=== PATIENT | male | born 1940 | race Two or more races ===

== ENCOUNTER → 2017-07-13 | Day surgery (SDC) | payer MEDICARE, MEDICAID ==
[~2017-07-13] MED LIST: AMLO5TAB2 PO; HYDROmorphone 2 MG/ML VIAL IV PRN; IV RINGERS,LACTATED 1000ML 1,000 ML IV SCH; LIDOCAINE 1% PF 2 ML VIAL. ID PRN; LIDOCAINE 2% PF Vial for OR 5 ML VIAL. ONE; LISI10TA2 PO; MONT10TA9 PO; MORPHINE SULFATE 2 MG/ML DISP.SYRIN. IV PRN; ONDANSETRON PF 4 MG/2 ML VIAL. IV PRN; PROCHLORPERAZINE 10 MG/2 ML VIAL. IV PRN; PROPOFOL 60 ML IV ONE; fentaNYL PF VIAL 100 MCG/2 ML VIAL IV PRN
--- NOTE | 2017-07-13 09:09 | PDOC1 ---
HISTORY & PHYSICAL H&P Fozia Bourgeois 1940 06/20/2017 03:40 PM 10/01 [facility] [facility] [facility], [facility] OUR PATIENTS COME FIRST [address] [place] [address]. [phone] Patient: Fozia Bourgeois Date of : 1940 Date: 06/20/2017 3:40 PM Visit Type: Consult This 77 year old male presents for H/o colorectal polyp and GERD. History of Present Illness: 1. H/o colorectal polyp Prior screening: colonoscopy. Risk Factors: h/o colon polyp. Pertinent negatives include abdominal pain, change in bowel habits, change in stool caliber, constipation, decreased appetite, diarrhea, melena, nausea, rectal bleeding, vomiting, weight gain and weight loss. Additional information: No family history of colon cancer, No family history of Crohn's/colitis, No NSAID/ ASA use and Last colonoscopy 2011. 2. GERD The patient reports epigastric pain and heartburn. Context: treatment with PPIs. Denies aggravating factors. Denies relieving factors. Pertinent negatives include aspiration, awakens w/ choking or heartburn, chronic cough, dental erosions, dysphagia, melena, nausea, reflux, sore throat, vomiting, weight gain and weight loss. INTAKE COMMENTS: Intake Comments: Nurse Note: the pt is here today due to a h/o colon polyps in 2011. PROBLEM LIST: Problem Description Onset Date Benign essential hypertension 06/16/2010 Hyperlipidemia 06/16/2010 Hypothyroidism 06/16/2010 Breast mass, left 11/08/2015 Acute pain of right knee 11/08/2015 PAST MEDICAL/SURGICAL HISTORY (Detailed) Disease/disorder Onset Date Management Date Comments Cataract extraction 2010 Prostate biopsy 2009 Colonic polyps colonoscopy with polypectomy 04/25/2012 Hyperlipidemia Hypertension 2000 hypothyroidism DIAGNOSTICS HISTORY: Test Ordered Interpretation Result completed Left shoulder x-ray 06/22/2010 Normal 06/22/2010 EKG 06/16/2010 Normal 06/16/2010 COLONOSCOPY AND BIOPSY 04/29/2012 abnormal Imp: Polyps in the proximal ascending colon(polypectomy), Polyp in the sigmoid colon(polypectomy), Polyp in the proximal rectum(polypectomy), BX: fragments of tubular adenoma, fragments of tubular adenoma, tubular adenoma 04/25/2012 Test Ordered Ordering Comments Modifier Left shoulder x-ray 06/22/2010 Diagnostic Images EKG 06/16/2010 Cardiac Studies COLONOSCOPY AND BIOPSY 04/29/2012 Medications (Active): Started Medication Directions Instruction Stopped 09/14/2016 amlodipine 5 mg tablet TAKE 1 TABLET (5MG) BY ORAL ROUTE EVERY DAY 11/08/2015 cyanocobalamin (vit B-12) 2,500 mcg sublingual lozenge one lozenge sublingually daily. 01/11/2017 Flonase 50 mcg/actuation nasal spray,suspension spray 2 spray by intranasal route every day in each nostril 11/07/2017 09/14/2016 lisinopril 10 mg tablet take 1 tablet by oral route every day 01/11/2017 Singulair 10 mg tablet take 1 tablet by oral route every day in the evening 04/29/2012 Tylenol Extra Strength 500 mg Tab take 2 by Oral route in am and pm 11/08/2015 Vitamin D3 1,000 unit capsule 1 daily Allergies: Ingredient Reaction Medication Name Comment NO KNOWN ALLERGIES REVIEW OF SYSTEMS System Neg/Pos Details Constitutional Negative Chills, fever, malaise, weight gain and weight loss. ENMT Negative Dental erosions and sore throat. Eyes Negative Double vision. Respiratory Negative Aspiration, chronic cough, dyspnea and wheezing. Cardio Negative Chest pain and irregular heartbeat/palpitations. GI Positive See HPI. GI Negative Abdominal pain, awakenings with choking or heartburn, change in bowel habits, change in stool caliber, constipation, decreased appetite, diarrhea, dysphagia, melena, nausea, see HPI, rectal bleeding, reflux and vomiting. Negative Dysuria and hematuria. Endocrine Negative Cold intolerance and heat intolerance. Psych Negative Anxiety. Integumentary Negative Hives and rash. MS Negative Joint pain. Tru/Lymph Negative Easy bleeding and easy bruising. Allergic/Immuno Negative Animals at home and food allergies. VITAL SIGNS Time BP mm/Hg Pulse /min Resp /min Temp F Ht ft Ht in Ht cm Wt lb Wt kg BMI kg/ m2 BSA m2 O2 Sat% 3:55 PM 138/82 80 98.1 0.0 65.60 166.62 168.20 76.294 27.48 96 Time Measured by 3:55 PM Hilda Lopes PHYSICAL EXAM: Exam Findings Details Constitutional Normal Well developed. Eyes Normal Conjunctiva - Right: Normal, Left: Normal. Sclera - Right: Normal, Left: Normal. Nasopharynx Normal Lips/teeth/gums - Normal. Neck Exam Normal Inspection - Normal. Thyroid gland - Normal. Respiratory Normal Inspection - Normal. Auscultation - Normal. Cardiovascular Normal Regular rate and rhythm. No murmurs, gallops, or rubs. Vascular Normal Pulses - Carotids: Normal, Femoral: Normal, Dorsalis pedis: Normal. Abdomen Normal Inspection - Normal. Anterior palpation - No guarding. No abdominal tenderness. No hepatic enlargement. No splenic enlargement. No hernia. No ascites. Skin Normal Inspection - Normal. Extremity Normal No edema. Psychiatric * Oriented to time, place, person and situation. Psychiatric Normal Appropriate mood and effect. Assessment/Plan # Detail Type Description 1. Assessment GERD with esophagitis (K21.0). Patient Plan schedule EGD at Plan Orders Further diagnostic evaluations ordered today include(s) EGD to be performed today. 2. Assessment History of colon polyps (Z86.010). Patient Plan schedule colonoscopy at Plan Orders Further diagnostic evaluations ordered today include(s) Colonoscopy to be performed today. He is to schedule a follow-up visit with Piper Bourgeois MD upon completion of work-up Electronically signed by: Piper Bourgeois MD 06/22/2017 10:16 AM Document generated by: Piper Bourgeois 06/22/2017 10:16 AM Ana María Alfaro MD, Family Practice; Stephan London MD Internal Medicine; Christian Hoffmann MD, Internal Medicine; Wilder Bourgeois MD Internal Medicine; Piper Bourgeois MD, Gastroenterology; Mian Ocampo MD, Rheumatology, S. Fabrizio Temple, Physical Medicine/Rehab Isidro Campa APRN ------ 07/13/17 Patient seen and examined. No change in H&P. PIPER BOURGEOIS MD Jul 13, 2017 09:09
[2017-07-13 10:10] VITALS: BP 137/83
--- NOTE | 2017-07-16 15:06 | PATHOLOGY ---
PATHOLOGY REPORT * * * * * * * * FINAL DIAGNOSIS: Esophageal biopsy, distal esophagus: - Segments of hyperplastic squamous esophageal mucosa and esophagogastric mucosa showing chronic inflammation, consistent with reflux esophagitis. COMMENT: Sections of the distal esophageal biopsy reveal segments of hyperplastic squamous esophageal mucosa and esophagogastric mucosa showing [id number] active chronic inflammation, consistent with reflux esophagitis. There is no evidence of Trejo's change, dysplasia or malignancy. (JPM:mml; 07/16/2017) REPORT ELECTRONICALLY SIGNED BY: Florentino Vieira M.D. DATE/TIME: 07/16/2017 15:04 * * * * * * * * GROSS PATHOLOGY: Received in formalin labeled "Fozia Bourgeois, distal esophageal BX," are 2 segments of valle soft tissue measuring 0.8 x 0.3 x 0.4 cm in aggregate dimensions and ranging from 0.4 to 0.4 cm in maximum dimension. The specimen is submitted entirely in cassette A1. (TSD; 07/13/2017) INITIAL CPT CODE(S): A; 57506 Professional services performed [place] [address] Technical services performed by [facility] at [address] [place] [address]. SPECIMEN(S) RECEIVED: A.Distal esophagus biopsy CLINICAL HISTORY: GERD, history of colon polyps; esophageal ulcer PATIENT: FOZIA BOURGEOIS /AGE: 8 1940 (Age: 77) PATIENT #: [id number] ALT CASE #: SPECIMEN COLLECTION DATE: 07/13/2017 SPECIMEN RECEIVED DATE: 07/13/2017 [facility] - [address] [place] [address] - PHONE: [phone] * * * END OF REPORT * * *
== END | disposition home or self-care (01) ==
LOC: ENDOS 08:29
PROVIDERS: ATTEND Internal Medicine Gastroenterology
DX: Z09 Encounter for follow-up examination after completed treatment for conditions other than malignant neoplasm (principal); Z87.19 Personal history of other diseases of the digestive system; K21.0 Gastro-esophageal reflux disease with esophagitis; E78.00 Pure hypercholesterolemia, unspecified; I10 Essential (primary) hypertension; Z87.39 Personal history of other diseases of the musculoskeletal system and connective tissue; Z86.39 Personal history of other endocrine, nutritional and metabolic disease
CPT/HCPCS: 43239; 45378; J2704; 88305; J2001